=== PATIENT | male | born 1970 | race Caucasian/White ===

== ENCOUNTER 2016-09-26 18:19 | Emergency (ER) | payer OTHER ==
[~2016-09-26 18:19] MED LIST: ALPRAZOLAM PO; AMOXICILLIN500 M1 PO; ATARAX PO; AUGMENTIN PO; AUGMENTIN1 TAB.SR1 PO; BACTRIM DS TABL1 TAB PO; BENADRYL PO; BENZONATATE PO; CLOBETASOL 0.0560 GM TOP; DIAZEPAM PO; DICLOFENAC PO; DICYCLOMINE HCL20 MG PO; FLAGYL PO; FLOMAX0.4 M1 PO; HYDROCORTISONE28 GM TOP; IMODIUM2 MG PO; KEFLEX PO; LAMISIL PO; LEVAQUIN PO; LORTAB 10-5001 EACH PO; LORTAB 10/500 T1 TAB PO; LORTAB 7.5-5001 TAB PO; NO MEDICATIONS; PERCOCET PO; PERCOCET10 PO; PERCOCET5/325 PO; PHENERGAN PO; PHENERGAN12.5 MG PO; PHENERGAN25 MG PO; PREDNISONE PO; PREVACID PO; PRILOSEC PO; PROVENTIL17 GM INH; TESSALON200 MG PO; TYLOX1 CAP 5/50 PO; VICODIN 5/1 TAB 5/50 PO; VICODIN PO; VOLTAREN75 MG PO; XANAX1 MG PO; ZITHROMAX PO; ZOFRAN ODT4 MG PO
== END 2016-09-26 20:55 | disposition home or self-care (01) ==
LOC: SED 18:19
DX: L03.116 Cellulitis of left lower limb (principal); F17.210 Nicotine dependence, cigarettes, uncomplicated; Z88.8 Allergy status to other drugs, medicaments and biological substances
CPT/HCPCS: 82947; 99283